=== PATIENT | female | born 1955 | race Caucasian/White ===

== ENCOUNTER 2016-12-20 08:58 | Emergency (ER) | payer OTHER ==
[~2016-12-20] VITALS: Ht 165.1 cm; Wt 59.0 kg
[~2016-12-20 08:58] MED LIST: MULT-116 PO; [UNRECOGNIZED DRUG - CODE] IV
[2016-12-20 09:27] LABS: BASOPHILS # (AUTO) 0.1 10^3/uL (0.0-0.1); BASOPHILS % (AUTO) 1 % (0-10); EOSINOPHILS % (AUTO) 1 % (0-10); LYMPHOCYTES # (AUTO) 2.4 X 10^3 (1.0-4.0); LYMPHOCYTES % (AUTO) 48 % (12-44); MEAN CORPUSCULAR HEMOGLOBIN 30 PG (25-34); MEAN CORPUSCULAR HGB CONC 34 G/DL (32-36); MEAN CORPUSCULAR VOLUME 90 FL (80-99); MEAN PLATELET VOLUME 10.3 FL (7.4-10.4); MONOCYTES # (AUTO) 0.4 X 10^3 (0.0-1.0); MONOCYTES % (AUTO) 8 % (0-12); NEUTROPHILS # (AUTO) 2.1 X 10^3 (1.8-7.8); NEUTROPHILS % (AUTO) 43 % (42-75); PLATELET COUNT 181 10^3/uL (130-400); RED BLOOD COUNT 4.48 10^6/uL (4.35-5.85); RED CELL DISTRIBUTION WIDTH 13.4 % (10.0-14.5)
[2016-12-20 09:31] LABS: BILIRUBIN,URINE NEGATIVE (NEGATIVE); KETONES,URINE NEGATIVE (NEGATIVE); LEUKOCYTE ESTERASE ,URINE NEGATIVE (NEGATIVE); NITRITE,URINE NEGATIVE (NEGATIVE); PH,URINE 8 (5-9); PROTEIN,URINE NEGATIVE (NEGATIVE); UROBILINOGEN,URINE NORMAL (NORMAL)
[2016-12-20 09:32] LABS: INR 0.9 (0.8-1.4); PROTHROMBIN TIME PATIENT 11.9 SEC (12.2-14.7)
[2016-12-20 09:38] LABS: SQUAMOUS EPITHELIAL CELL,UR RARE /HPF
[2016-12-20 09:41] LABS: ALANINE AMINOTRANSFERASE 16 U/L (0-55); ALBUMIN 4.3 G/DL (3.2-4.5); ANION GAP 11 MMOL/L (5-14); ASPARTATE AMINO TRANSFERASE 27 U/L (5-34); BILIRUBIN,TOTAL 0.3 MG/DL (0.1-1.0); BLOOD UREA NITROGEN 10 MG/DL (7-18); BUN/CREATININE RATIO 13; CALCIUM 9.5 MG/DL (8.5-10.1); CARBON DIOXIDE 25 MMOL/L (21-32); CHLORIDE 105 MMOL/L (98-107); CREATININE SERUM 0.75 MG/DL (0.60-1.30); GFR ESTIMATED > 60; GLUCOSE 98 MG/DL (70-105); POTASSIUM 3.8 MMOL/L (3.6-5.0); SODIUM 141 MMOL/L (135-145); TOTAL PROTEIN 7.1 G/DL (6.4-8.2)
--- NOTE | 2016-12-20 09:42 | ED Cardiac General ---
History of Present Illness General Chief Complaint: Chest Pain Stated Complaint: CHEST PAIN Nursing Triage Note: PT STATES WEAKNESS, CHEST PAIN, COUGHING, AND DIZZINESS. DX LAST WEEK WITH THE FLU. Source: patient Exam Limitations: no limitations History of Present Illness Time seen by provider: 09:00 Initial Comments Here with report of chest congestion, cough, weakness, dizziness, chest tightness/pain and overall not feeling well. This is progressive for the last 5 -6 days. She is currently on Tamiflu for the cough and congestion. She states that her cough is causing her chest to hurt. She presents weak and clammy. 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 Has had some vomiting and some loose stools although that seems to be better over the last day or 2. Timing/Duration: 5-6 days Severity: moderate Location: central Prior CP/Workup: no prior chest pain NTG SL SHAPING MACHINE TENDER: No ASA po SHAPING MACHINE TENDER: No Associated Systoms: Chest Pain, Cough, Fever/Chills, Malaise, Nausea/Vomiting, No Rash, Shortness of Air, Weakness Allergies and Home Medications Allergies Coded Allergies: hydrocodone (Verified Allergy, Unknown, 03/27/16) Home Medications Multivitamin 1 Each Tablet, 1 EACH PO DAILY, (Reported) Review of Systems Constitutional: see HPI, chills, diaphoresis, fever EENTM: Nose Congestion, Throat Pain Respiratory: See HPI, Cough, Shortness of Air Cardiovascular: See HPI, Chest Pain, Lightheadedness Gastrointestinal: Diarrhea, Nausea, Vomiting Genitourinary: No Symptoms Reported Musculoskeletal: no symptoms reported Skin: no symptoms reported Psychiatric/Neurological: Anxiety, Denies Headache Endocrine: No Symptoms Reported All Other Systems Reviewed Negative Unless Noted: Yes Past Dnouqyg-Fbywto-Vurvtf Hx Patient Social History Alcohol Use: Denies Use Recreational Drug Use: No Smoking Status: Current Everyday Smoker Type Used: Cigarettes Recent Foreign Travel: No Contact w/Someone Who Travel: No Recent Infectious Disease Expo: No Recent Hopitalizations: No Immunizations Up To Date Tetanus Booster (TDap): Unknown Date of Influenza Vaccine: Jun 07, 2016 Seasonal Allergies Seasonal Allergies: No Surgeries HX Surgeries: Yes (right arm/hand, lipoma, breast bx) Surgeries: Hysterectomy, Orthopedic Respiratory Hx Respiratory Disorders: Yes Respiratory Disorders: Pneumonia Cardiovascular Hx Cardiac Disorders: No Neurological Hx Neurological Disorders: No Reproductive System Hx Reproductive Disorders: Yes ENDOCRINOLOGY NURSE History: Hysterectomy Genitourinary Hx Genitourinary Disorders: No Gastrointestinal Hx Gastrointestinal Disorders: No Musculoskeletal Hx Musculoskeletal Disorders: No Endocrine Hx Endocrine Disorders: No HEENT HX ENT Disorders: No Cancer Hx Cancer: No Psychosocial Hx Psychiatric Problems: Yes Behavioral Health Disorders: Depression Integumentary HX Skin/Integumentary Disorder: No Blood Transfusions Hx Blood Disorders: No Adverse Reaction to a Blood Tr: No Reviewed Nursing Assessment Reviewed/Agree w Nursing PMH: Yes Family Medical History Significant Family History: No Pertinent Family Hx Physical Exam Vital Signs Vital Sign - Last 12Hours 12/20/16 09:14 Temp 97.6 Pulse 64 Resp 22 B/P (MAP) 160/92 Pulse Ox 100 O2 Delivery Room Air Capillary Refill : Less Than 3 Seconds General Appearance: No Apparent Distress, WD/WN HEENT: PERRL/EOMI, Pharyngeal Erythema Neck: Non Tender, Supple Respiratory: No Respiratory Distress, Crackles (right base), No Wheezing Cardiovascular: Regular Rate, Rhythm, No Murmur Gastrointestinal: Non Tender, Soft Extremity: Normal Range of Motion, Non Tender Neurologic/Psychiatric: Alert, Oriented x3 Skin: Normal Color, Warm/Dry Focused Exam Lactic Acid Level Laboratory Tests Test 12/20/16 09:10 Lactic Acid Level 1.25 MMOL/L (0.50-2.00) Progress/Results/Core Measures Results/Orders Lab Results Laboratory Tests Test 12/20/16 09:10 12/20/16 09:20 Range/Units White Blood Count 5.0 4.3-11.0 10^3/uL Red Blood Count 4.48 4.35-5.85 10^6/uL Hemoglobin 13.6 11.5-16.0 G/DL Hematocrit 40 35-52 % Mean Corpuscular Volume 90 80-99 FL Mean Corpuscular Hemoglobin 30 25-34 PG Mean Corpuscular Hemoglobin Concent 34 32-36 G/DL Red Cell Distribution Width 13.4 10.0-14.5 % Platelet Count 181 130-400 10^3/uL Mean Platelet Volume 10.3 7.4-10.4 FL Neutrophils (%) (Auto) 43 42-75 % Lymphocytes (%) (Auto) 48 H 12-44 % Monocytes (%) (Auto) 8 0-12 % Eosinophils (%) (Auto) 1 0-10 % Basophils (%) (Auto) 1 0-10 % Neutrophils # (Auto) 2.1 1.8-7.8 X 10^3 Lymphocytes # (Auto) 2.4 1.0-4.0 X 10^3 Monocytes # (Auto) 0.4 0.0-1.0 X 10^3 Eosinophils # (Auto) 0.0 0.0-0.3 10^3/uL Basophils # (Auto) 0.1 0.0-0.1 10^3/uL Prothrombin Time 11.9 L 12.2-14.7 SEC INR Comment 0.9 0.8-1.4 Activated Partial Thromboplast Time 27 24-35 SEC Sodium Level 141 135-145 MMOL/L Potassium Level 3.8 3.6-5.0 MMOL/L Chloride Level 105 98-107 MMOL/L Carbon Dioxide Level 25 21-32 MMOL/L Anion Gap 11 5-14 MMOL/L Blood Urea Nitrogen 10 7-18 MG/DL Creatinine 0.75 0.60-1.30 MG/DL Estimat Glomerular Filtration Rate > 60 BUN/Creatinine Ratio 13 Glucose Level 98 70-105 MG/DL Lactic Acid Level 1.25 0.50-2.00 MMOL/L Calcium Level 9.5 8.5-10.1 MG/DL Total Bilirubin 0.3 0.1-1.0 MG/DL Aspartate Amino Transf (AST/SGOT) 27 5-34 U/L Alanine Aminotransferase (ALT/SGPT) 16 0-55 U/L Alkaline Phosphatase 51 40-136 U/L Troponin I < 0.30 <0.30 NG/ML Total Protein 7.1 6.4-8.2 G/DL Albumin 4.3 3.2-4.5 G/DL Urine Color YELLOW Urine Clarity CLEAR Urine pH 8 5-9 Urine Specific [place] 1.010 L 1.016-1.022 Urine Protein NEGATIVE NEGATIVE Urine Glucose (UA) NEGATIVE NEGATIVE Urine Ketones NEGATIVE NEGATIVE Urine Nitrite NEGATIVE NEGATIVE Urine Bilirubin NEGATIVE NEGATIVE Urine Urobilinogen NORMAL NORMAL MG/DL Urine Leukocyte Esterase NEGATIVE NEGATIVE Urine RBC (Auto) NEGATIVE NEGATIVE Urine RBC RARE /HPF Urine WBC NONE /HPF Urine Squamous Epithelial Cells RARE /HPF Urine Crystals NONE /LPF Urine Bacteria NEGATIVE /HPF Urine Casts NONE /LPF Urine Mucus NEGATIVE /LPF Urine Culture Indicated NO My Orders Orders - CHARBEL CLEANING MD Cbc With Automated Diff (4/19/17 09:05) Comprehensive Metabolic Panel (12/20/16 09:05) Lactic Acid Analyzer (12/20/16 09:05) Blood Culture (12/20/16 09:05) Sputum Culture (12/20/16 09:05) Ua Culture If Indicated (12/20/16 09:05) Protime With Inr (12/20/16 09:05) Partial Thromboplastin Time (12/20/16 09:05) Chest 1 View, Ap/Pa Only (12/20/16 09:05) O2 (12/20/16 09:05) Saline Lock/Iv-Start (12/20/16 09:05) Saline Lock/Iv-Start (12/20/16 09:05) Ekg Tracing (12/20/16 09:05) Troponin I (12/20/16 09:05) Vital Signs Adult Sepsis Patie Q1HR (12/20/16 09:05) Remove Rings In Anticipation O (12/20/16 09:05) Ns Iv 1000 Ml (Sodium Chloride 0.9%) (12/20/16 09:47) Albuterol/Ipra Inhalation Soln (Duoneb I (12/20/16 10:00) Svn Sm Volume Nebulizer Rt-Rfs (12/20/16 09:48) Medications Given in ED Current Medications Medications Dose Ordered Sig/Dean Route Start Time Stop Time Status Last Admin Dose Admin Albuterol/ Ipratropium 3 ml ONCE ONCE INH 12/20/16 10:00 12/20/16 10:01 DC 12/20/16 10:01 3 ML Sodium Chloride 1,000 ml @ 0 mls/hr Q0M ONCE IV 12/20/16 09:47 12/20/16 09:48 DC 12/20/16 09:54 1,000 MLS/HR Vital Signs/I&O Vital Sign - Last 12Hours 12/20/16 12/20/16 12/20/16 09:14 09:26 10:03 Temp 97.6 Pulse 64 Resp 22 B/P (MAP) 160/92 Pulse Ox 100 99 O2 Delivery Room Air Room Air Blood Pressure Mean: 114 Progress Note : Progress Note Seen and evaluated. IV, labs, EKG and chest x-ray ordered. Blood cultures and lactic acid ordered due to recent illness. Normal saline 1 L bolus. Monitor patient. 1225: Overall no acute findings. Patient feeling a little better after fluids. Likely bronchitis related event as well as viral GI illness. Discharged home with return precautions. Patient verbalize understanding instructions and agreement with plan. ECG Initial ECG Impression Date: Dec 20, 2016 Initial ECG Impression Time: 09:03 Initial ECG Rate: 65 Initial ECG Rhythm: Normal Sinus Comment Sinus rhythm with flat T waves. No evidence of ST elevation [place]. Overall similar to previous of 06 September 2004. Interpreted by me. Diagnostic Imaging Diagonstic Imaging: Xray Plain Films/CT/US/NM/MRI: chest Comments VIA [facility]. [place], [place] NAME: RACHID HALLMAN [facility] REC#: [id number] PT STATUS: REG ER : 1955 PHYSICIAN: CHARBEL CLEANING MD ADMIT DATE: 12/20/16/ER Draft Date of Exam:12/20/16 CHEST 1 VIEW, AP/PA ONLY EXAMINATION: Frontal chest obtained at 935 hours a.m. Heart and mediastinal silhouette are normal in appearance. The lungs are clear. There is no pneumothorax or pleural fluid. IMPRESSION: Negative chest. Dictated on workstation # [id number] Dict: 12/20/16 0942 Trans: 12/20/16 0945 [facility] [id number] Interpreted by: ADE PURDY MD Electronically signed by: Reviewed: Reviewed by Me Departure Impression Impression: Primary Impression: Bronchitis Additional Impressions: Diarrhea Qualified Codes: R19.7 - Diarrhea, unspecified Dehydration Disposition: 01 HOME, SELF-CARE Condition: Improved Departure-Patient Inst. Referrals: [facility] (PCP/Family) Primary Care Physician Patient Instructions: Acute Bronchitis, Adult (DC), Chest Pain (DC), Dehydration, Adult (DC), Diarrhea in Adolescents and Adults Add. Discharge Instructions: All discharge instructions reviewed with patient and/or family. Voiced understanding. Drink plenty of fluids. Clear liquid diet for 24 hours and then advance as tolerated. Follow-up with your Dr. in a few days for recheck. Return for worse pain, fever, vomiting, weakness, breathing problems or other concerns as needed. Take medications as directed. Scripts Albuterol Sulfate (PROAIR HFA) 1 Puff Puff 2 PUFF IH Q4H Y for WHEEZING, #1 INHALER 1 Refill 1 PUFF = 90 MCG Prov: CHARBEL CLEANING MD 12/20/16 Prednisone (Prednisone) 20 Mg Tab 40 MG PO DAILY, #12 TAB 0 Refills Prov: CHARBEL CLEANING MD 12/20/16 CHARBEL CLEANING MD Dec 20, 2016 09:42
[2016-12-20 09:46] LABS: TROPONIN I < 0.30 NG/ML (<0.30)
--- NOTE | 2016-12-20 09:46 | Diagnostic Imaging Report ---
EXAMINATION: Frontal chest obtained at 935 hours a.m. Heart and mediastinal silhouette are normal in appearance. The lungs are clear. There is no pneumothorax or pleural fluid. IMPRESSION: Negative chest. Dictated by: Dictated on workstation # [id number]
[2016-12-20] MEDS ORDERED: NS IV 1000 ML 1,000 ML IV ONE (09:47)
[2016-12-20] MEDS ORDERED: RT-ALBUTEROL/IPRATROPIUM 3 ML (DUONEB) VIAL INH ONE (10:00)
[2016-12-20] MEDS ORDERED: PRD20T PO (12:42)
[2016-12-20] MEDS ORDERED: RT-ALBUINH IH (12:42)
[2016-12-20 13:15] VITALS: BP 143/90
== END 2016-12-20 13:15 | disposition home or self-care (01) ==
LOC: EDUNIT# 08:58 → ER 08:59
DX: J40 Bronchitis, not specified as acute or chronic (principal); E86.0 Dehydration; R42 Dizziness and giddiness; F17.210 Nicotine dependence, cigarettes, uncomplicated
CPT/HCPCS: 36415; 71010; 80053; 81000; 83605; 84484; 85025; 85610; 85730; 87040; 87070; 87205; 93005; 94640; 96360

== ENCOUNTER → 2018-01-03 | Outpatient (CLI) | payer OTHER ==
[~2018-01-03] MED LIST changes: -MULT-116 PO; +MULT-324 PO; +MULT10VI3 IV; +PRD20T PO; +RT-ALBUINH IH; -[UNRECOGNIZED DRUG - CODE] IV
--- NOTE | 2018-01-03 19:24 | Diagnostic Imaging Report ---
INDICATION: Routine screening. No prior mammograms are available for comparison. This is a baseline study. 2-D and 3-D bilateral screening mammography was performed with CAD. The current study was also evaluated with a Computer Aided Detection (CAD) system. FINDINGS: Both breasts are heterogeneously dense, limiting the sensitivity of mammography. Scattered benign-appearing calcifications are noted. Tiny circumscribed density in the inner left breast is noted, likely a small cyst. This appears benign. No spiculated mass or malignant-appearing microcalcifications are seen. The axillae are unremarkable. IMPRESSION: No mammographic features suspicious for malignancy are identified. ACR BI-RADS Category 2: Benign findings. Result letter will be mailed to the patient. Note: At least 10% of breast cancer is not imaged by mammography. Dictated by: Dictated on workstation # [id number]
== END ==
LOC: RAD 13:37
PROVIDERS: ATTEND Family Medicine
DX: Z12.31 Encounter for screening mammogram for malignant neoplasm of breast (principal)
CPT/HCPCS: 77067

== ENCOUNTER → 2019-02-12 | Outpatient (CLI) | payer OTHER ==
[~2019-02-12] MED LIST changes: +ALPR0.254 PO; +ASCO1CAP4 PO; +CHOL200025 PO; +KRIL1CAP18 PO; +MAGN400T39 PO; -MULT-324 PO; +MULT-834 PO
--- NOTE | 2019-02-12 18:55 | Diagnostic Imaging Report ---
EXAMINATION: Digital mammogram bilateral screening. The current study was also evaluated with a Computer Aided Detection (CAD) system. 3-D tomosynthesis was also performed and reviewed. INDICATION: Screening. This study was compared to the prior exam of 01/03/2018. At this time, there are no current complaints. FINDINGS: The fibroglandular tissue in both breasts is dense. This does limit the sensitivity of this exam. Overall, there does not appear to have been any significant change when compared to the prior study. No primary or secondary sign of malignancy is noted. The 3D tomographic views also fail to show any evidence of malignancy. IMPRESSION: There is no radiographic evidence for malignancy. ACR BI-RADS Category 1: Negative. Result letter will be mailed to the patient. Note: At least 10% of breast cancer is not imaged by mammography. Dictated by: Dictated on workstation # [id number]
== END ==
LOC: RAD 09:33
PROVIDERS: ATTEND Family Medicine
DX: Z12.31 Encounter for screening mammogram for malignant neoplasm of breast (principal)
CPT/HCPCS: 77067

== ENCOUNTER 2019-02-13 12:00 | Outpatient (CLI) | payer OTHER ==
[~2019-02-13] VITALS: Ht 165.1 cm; Wt 59.0 kg
[~2019-02-13 12:00] MED LIST changes: -ALPR0.254 PO; -ASCO1CAP4 PO; -CHOL200025 PO; -KRIL1CAP18 PO; -MAGN400T39 PO
[2019-02-13] MEDS ORDERED: KRIL1CAP18 PO (12:22)
[2019-02-13] MEDS ORDERED: ALPR0.254 PO (12:22)
[2019-02-13] MEDS ORDERED: MAGN400T39 PO (12:22)
[2019-02-13] MEDS ORDERED: ASCO1CAP4 PO (12:22)
[2019-02-13] MEDS ORDERED: CHOL200025 PO (12:22)
== END 2019-02-13 12:58 ==
LOC: PREOP 12:00
PROVIDERS: ATTEND Surgery
DX: Z01.818 Encounter for other preprocedural examination (principal)

== ENCOUNTER 2019-02-18 09:54 | Day surgery (SDC) | payer OTHER ==
[~2019-02-18] VITALS: Ht 165.1 cm; Wt 59.0 kg
[~2019-02-18 09:54] MED LIST changes: +ALPR0.254 PO; +ASCO1CAP4 PO; +CHOL200025 PO; +KRIL1CAP18 PO; +MAGN400T39 PO
[2019-02-18] MEDS ORDERED: LACTATED RINGERS 1,000 ML IV ONE (09:58)
[2019-02-18 10:15] VITALS: BP 120/85
[2019-02-18] MEDS ORDERED: MIDAZOLAM 2 MG/2 ML (VERSED) VIAL ONE (12:27)
[2019-02-18] MEDS ORDERED: PROPOFOL INJECTION 50 ML IV ONE (12:27)
--- NOTE | 2019-02-18 12:31 | Progress Note-Pre Operative ---
Pre-Operative Progress Note H&P Reviewed The H&P was reviewed, patient examined and no changes noted. Date Seen by Provider: Feb 18, 2019 Time Seen by Provider: 12:31 Date H&P Reviewed: Feb 18, 2019 Time H&P Reviewed: 12:31 Pre-Operative Diagnosis: BLOOD IN STOOL, CHRONIC DIARRHEA, HX DIVERTICULITIS CHARLEY HILL DO Feb 18, 2019 12:31
--- NOTE | 2019-02-18 13:09 | Progress Note-Post Operative ---
Post-Operative Progess Note Surgeon (s)/[employer] Intermediary (s) Surgeon CHARLEY HILL DO [employer] Intermediary: NA Pre-Operative Diagnosis BLOOD IN STOOL, CHRONIC DIARRHEA, HX DIVERTICULITIS Post-Operative Diagnosis RECTAL POLYP Procedure & Operative Findings Date of Procedure 02/18/19 Procedure Performed/Findings COLONOSCOPY C RANDOM COLD BIOPSIES, COLD POLYPECTOMY Anesthesia Type PER SHEAR OPERATOR HELPER Estimated Blood Loss Estimated blood loss (mL): NONE Specimens/Packing Specimens Removed RANDOM COLON, RECTAL POLYP CHARLEY HILL DO Feb 18, 2019 13:09
[2019-02-18 13:10] VITALS: BP 114/63
--- NOTE | 2019-02-18 13:11 | Discharge Inst-Simple/Standard ---
Discharge Inst-Standard Patient Instructions/Follow Up Plan of Care/Instructions/FU: 2 WEEKS SERGIO Activity as Tolerated: Yes Discharge Diet: Regular Diet (HIGH FIBER) CHARLEY HILL DO Feb 18, 2019 13:11
[2019-02-18 13:40] VITALS: BP 123/66
--- NOTE | 2019-02-18 13:55 | Anesthesia-General Post-Op ---
MAC Patient Condition Mental Status/LOC: Same as Preop Cardiovascular: Satisfactory Nausea/Vomiting: Absent Respiratory: Satisfactory Pain: Controlled Complications: Absent Post Op Complications Complications None Follow Up Care/Instructions Patient Instructions None needed. Anesthesiology Discharge Order Discharge Order Patient is doing well, no complaints, stable vital signs, no apparent adverse anesthesia problems. No complications reported per nursing. ANIYAH MURRELL CRNA Feb 18, 2019 13:55
[2019-02-18 14:10] VITALS: BP 123/66
--- NOTE | 2019-02-18 17:35 | OPERATIVE REPORT ---
DATE OF SERVICE: 02/18/2019 PREOPERATIVE DIAGNOSES: Blood in stool, chronic diarrhea, history of diverticulitis. POSTOPERATIVE DIAGNOSES: Rectal polyp. PROCEDURE PERFORMED: Colonoscopy with random cold biopsies and cold polypectomy of rectal polyp. SURGEON: Charley Pichardo DO. ANESTHESIA: Per GRADE SETTER. ESTIMATED BLOOD LOSS: None. COMPLICATIONS: None. INDICATIONS: The patient is a 63-year-old female with recent blood in stools and chronic diarrhea. The patient states she has been treated for diverticulitis in the past. She understands risks and benefits of procedure and wished to proceed with procedure. Consent was signed in the chart. DESCRIPTION OF PROCEDURE: The patient was taken to the endoscopy suite, placed in left lateral recumbent position. Timeout was performed. Digital rectal exam was performed. There were no palpable polyps, mass or ulcerations. The scope was inserted in the rectum and advanced all the way to the cecum with minimal difficulty. Prep was adequate. Scope was then slowly retracted back. There were no polyps, mass or ulceration in the cecum, ascending, transverse, descending and sigmoid colon. Random cold biopsies were obtained as the scope was being withdrawn. In the rectum, a small polyp was present, which cold polypectomy was performed. Scope was retroflexed noting no other pathology. Scope was returned to its normal position, slowly withdrawn until completely removed. The patient tolerated procedure well without any complications. She was taken to recovery room in stable condition. RECOMMENDATIONS: The patient will follow up with us in 2 weeks to discuss pathology results. The patient is to increase fiber in her diet. The patient will need repeat colonoscopy in 5 years. If any issues before that be seen at that time. Job ID: [id number] DocumentID: [id number] Dictated Date: 02/18/2019 13:13:15 Gear Lapper Date: 02/18/2019 17:34:56 Dictated By: CHARLEY PICHARDO DO
== END 2019-02-18 14:10 | disposition home or self-care (01) ==
LOC: ENDO 09:54
PROVIDERS: ATTEND Surgery
DX: K52.9 Noninfective gastroenteritis and colitis, unspecified (principal); K62.1 Rectal polyp; Z87.19 Personal history of other diseases of the digestive system; F17.210 Nicotine dependence, cigarettes, uncomplicated; Z79.899 Other long term (current) drug therapy

== ENCOUNTER 2019-09-25 06:41 | Outpatient (RCR) | payer OTHER | END 2019-12-22 | disposition home or self-care (01) | LOC: LAB 06:41 | PROVIDERS: ATTEND Family Medicine | DX: R19.7 Diarrhea, unspecified (principal) | CPT/HCPCS: 87015; 87045; 87046; 87324; 87328; 87329; 87449; 87899 ==

== ENCOUNTER 2021-02-03 00:07 | Emergency (ER) | payer OTHER ==
[~2021-02-03] VITALS: Ht 165.1 cm; Wt 63.5 kg
[~2021-02-03 00:07] MED LIST changes: +ALPR.25T PO; -ALPR0.254 PO
[2021-02-03] MEDS ORDERED: ASPIRIN 81 MG CHEW (CHILDREN'S ASA) PO ONE (00:15)
[2021-02-03 00:32] LABS: BASOPHILS % (AUTO) 0 % (0-10); EOSINOPHILS # (AUTO) 0.1 10^3/uL (0.0-0.3); EOSINOPHILS % (AUTO) 0 % (0-10); HEMATOCRIT 43 % (35-52); HEMOGLOBIN 14.7 g/dL (11.5-16.0); LYMPHOCYTES # (AUTO) 3.8 10^3/uL (1.0-4.0); LYMPHOCYTES % (AUTO) 22 % (12-44); MEAN CORPUSCULAR HEMOGLOBIN 31 pg (25-34); MEAN CORPUSCULAR HGB CONC 34 g/dL (32-36); MEAN CORPUSCULAR VOLUME 90 fL (80-99); MEAN PLATELET VOLUME 10.1 fL (9.0-12.2); MONOCYTES # (AUTO) 0.5 10^3/uL (0.0-1.0); MONOCYTES % (AUTO) 3 % (0-12); NEUTROPHILS # (AUTO) 13.1 10^3/uL (1.8-7.8); NEUTROPHILS % (AUTO) 75 % (42-75); PLATELET COUNT 258 10^3/uL (130-400); WHITE BLOOD COUNT 17.5 10^3/uL (4.3-11.0)
--- NOTE | 2021-02-03 00:36 | ED General ---
General Chief Complaint: Abdominal/GI Problems Stated Complaint: CP,DIARRHEA,VOMITING,HIVES Source of Information: Patient History of Present Illness Date Seen by Provider: Feb 03, 2021 Time Seen by Provider: 00:15 Initial Comments PT ARRIVES VIA POV FROM HOME, WANTS WHEELCHAIR ON ARRIVAL PT WITH MULTITUDE OF COMPLAINTS STATES SHE HAD HIVES YESTERDAY--ALL OVER. WENT TO [facility] AND GOT A SHOT OF CORTISONE AND TOOK A ZYRTEC YESTERDAY MORNING, AND HIVES WENT AWAY. STATES SHE DID HAVE THEM COME UP ON HER BUTTOCK AROUND 1700 BUT THEN WENT AWAY WITHOUT TREATMENT STATES " I FEEL LIKE I'M FILLING UP WITH ACID AND I'M POOPING BLACK TONIGHT" STATES SHE HAS HAD STOOLS X 3 TONIGHT THAT HAVE BEEN "BLACK" AND IS CAUSING RECTAL PAIN AND BURNING BECAUSE OF THE "DIARRHEA" STATES THEN SHE STARTED VOMITING TONIGHT, HAS VOMITED X 2 STATES YESTERDAY MORNING SHE HAD "CHEST PAIN THAT WENT TO MY BACK" --STATES "IT'S ALL UNDER MY DIAPHRAGM" AND POINTS TO EPIGASTRIC AREA AND ALL AROUND LOWER RIBS STATES SHE IS NOT HAVING PAIN NOW THEN STATES SHE HAS BEEN HAVING GENERALIZED ABDOMINAL PAIN, ALONG WITH RECTAL PAIN AND "HEMORRHOIDS" NO FEVER NO URINARY SYMPTOMS NO SHORTNESS OF BREATH PT DENIES ANY HISTORY OF CARDIAC PROBLEMS PT DID HAVE COLONOSCOPY 02/2019 FOR COMPLAINT OF CHRONIC DIARRHEA AND CHRONIC CONSTIPATION, AND WAS FOUND TO HAVE POLYPS AT THAT TIME ALSO HAS HISTORY OF DIVERTICULITIS PT IS NOT ON ASPIRIN OR BLOOD THINNERS PCP: DR. GOLD Allergies and Home Medications Allergies Coded Allergies: hydrocodone (Verified Allergy, Unknown, 03/27/16) Home Medications ALPRAZolam 0.25 Mg Tablet, 0.25 MG PO PRN, (Reported) Ascorbic Acid/Collagen Hydr 1 Each Capsule, 1 EACH PO DAILY, (Reported) Cholecalciferol (Vitamin D3) 2,000 Unit Tablet, 2,000 UNIT PO DAILY, (Reported) Ciprofloxacin HCl 500 Mg Tablet, 500 MG PO BID Prescribed by: ANDRÉS MCDANIEL on 02/03/21 0250 Famotidine 40 Mg Tablet, 40 MG PO DAILY Prescribed by: ANDRÉS MCDANIEL on 02/03/21 0250 Krill/Om-3/Dha/Epa/Phospho/Ast 1 Each Capsule, 1 EACH PO DAILY, (Reported) L. Acidophilus/Pectin, [place] 1 Each Capsule, 2 EACH PO QID Prescribed by: ANDRÉS MCDANIEL on 02/03/21249 Magnesium Oxide 400 Mg Tablet, 400 MG PO DAILY, (Reported) Metronidazole 500 Mg Tablet, 500 MG PO QID Prescribed by: ANDRÉS MCDANIEL on 02/03/21249 Ondansetron 8 Mg Tab.rapdis, 8 MG PO Q6H Prescribed by: ANDRÉS MCDANIEL on 02/03/21249 Prednisone 20 Mg Tab, 40 MG PO DAILY Prescribed by: ANDRÉS MCDANIEL on 02/03/21249 Patient Home Medication List Home Medication List Reviewed: Yes Review of Systems Review of Systems Constitutional: no symptoms reported; No chills, No diaphoresis, No fever EENTM: no symptoms reported Respiratory: no symptoms reported; No short of breath Cardiovascular: see HPI, chest pain; No edema Gastrointestinal: see HPI, abdominal pain, diarrhea, melena, nausea, vomiting Genitourinary: no symptoms reported Musculoskeletal: no symptoms reported Skin: see HPI, rash Psychiatric/Neurological: Anxiety Hematologic/Lymphatic: No Symptoms Reported Immunological/Allergic: no symptoms reported Past Tfocenu-Qfxobr-Lvnyxg Hx Past Med/Social Hx: Reviewed and Corrections made Patient Social History Alcohol Use: Rarely Uses Drug of Choice: DENIES Smoking Status: Current Everyday Smoker (1 PPD) Type Used: Cigarettes 2nd Hand Smoke Exposure: Yes Recent Hopitalizations: No Immunizations Up To Date Tetanus Booster (TDap): Unknown PED Vaccines UTD: No Date of Influenza Vaccine: Jun 10, 2018 Seasonal Allergies Seasonal Allergies: Yes Past Medical History Surgeries: Yes (right arm/hand, lipoma, breast bx;HYST/BSO-2 SURGERIES;COLONOSCOPIES) Breast, Hysterectomy, Oophorectomy, Orthopedic Respiratory: Yes Pneumonia Currently Using CPAP: No Currently Using BIPAP: No Cardiac: No Neurological: No Reproductive Disorders: Yes [employer]ORE [employer] History: Hysterectomy, Menopausal Sexually Transmitted Disease: No HIV/AIDS: No Genitourinary: No Gastrointestinal: Yes Chronic Constipation, Diverticulosis, Chronic Diarrhea, Polyps Musculoskeletal: Yes Arthritis Endocrine: No HEENT: Yes (GLASSES, DENTURES) Loss of Vision: Denies Hearing Impairment: Denies Cancer: No Psychosocial: Yes Anxiety, Depression Integumentary: No Blood Disorders: No (HX LOW IRON) Adverse Reaction/Blood Tranf: No (N/A) Family Medical History No Pertinent Family Hx Physical Exam Vital Signs Vital Signs - First Documented 02/03/21 02/03/21 00:15 03:27 Temp 36.7 Pulse 82 Resp 20 B/P (MAP) 117/95 (102) Pulse Ox 98 O2 Delivery Room Air Capillary Refill : Height, Weight, BMI Height: 5'5.00" Weight: 130lbs. 0.0oz. [id number]; 21.6 BMI Method:Stated General Appearance: WD/WN, Anxious, Other (VERY DRAMATIC, MOANING, HYPERVENTILATING, KEEPS EYES TIGHTLY CLOSED. 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 Skin: Normal Color, Warm/Dry; No Rash (NO RASH NOTED ANYWHERE AT THIS TIME.) Progress/Results/Core Measures Suspected Sepsis SIRS Temperature: Pulse: Respiratory Rate: Laboratory Tests 02/03/21 00:25: White Blood Count 17.5H Blood Pressure / Mean: Laboratory Tests 02/03/21 00:25: Creatinine 0.86, Platelet Count 258, Total Bilirubin 0.4 Results/Orders Lab Results Laboratory Tests Test 02/03/21 00:25 02/03/21 00:48 Range/Units White Blood Count 17.5 H 4.3-11.0 10^3/uL Red Blood Count 4.77 3.80-5.11 10^6/uL Hemoglobin 14.7 11.5-16.0 g/dL Hematocrit 43 35-52 % Mean Corpuscular Volume 90 80-99 fL Mean Corpuscular Hemoglobin 31 25-34 pg Mean Corpuscular Hemoglobin Concent 34 32-36 g/dL Red Cell Distribution Width 12.9 10.0-14.5 % Platelet Count 258 130-400 10^3/uL Mean Platelet Volume 10.1 9.0-12.2 fL Immature Granulocyte % (Auto) 0 % Neutrophils (%) (Auto) 75 42-75 % Lymphocytes (%) (Auto) 22 12-44 % Monocytes (%) (Auto) 3 0-12 % Eosinophils (%) (Auto) 0 0-10 % Basophils (%) (Auto) 0 0-10 % Neutrophils # (Auto) 13.1 H 1.8-7.8 10^3/uL Lymphocytes # (Auto) 3.8 1.0-4.0 10^3/uL Monocytes # (Auto) 0.5 0.0-1.0 10^3/uL Eosinophils # (Auto) 0.1 0.0-0.3 10^3/uL Basophils # (Auto) 0.0 0.0-0.1 10^3/uL Immature Granulocyte # (Auto) 0.1 0.0-0.1 10^3/uL Neutrophils % (Manual) 74 % Lymphocytes % (Manual) 21 % Monocytes % (Manual) 2 % Band Neutrophils 3 % Sodium Level 139 135-145 MMOL/L Potassium Level 3.7 3.6-5.0 MMOL/L Chloride Level 101 98-107 MMOL/L Carbon Dioxide Level 22 21-32 MMOL/L Anion Gap 16 H 5-14 MMOL/L Blood Urea Nitrogen 24 H 7-18 MG/DL Creatinine 0.86 0.60-1.30 MG/DL Estimat Glomerular Filtration Rate > 60 BUN/Creatinine Ratio 28 Glucose Level 145 H 70-105 MG/DL Calcium Level 9.8 8.5-10.1 MG/DL Corrected Calcium 9.5 8.5-10.1 MG/DL Magnesium Level 1.7 1.6-2.4 MG/DL Total Bilirubin 0.4 0.1-1.0 MG/DL Aspartate Amino Transf (AST/SGOT) 23 5-34 U/L Alanine Aminotransferase (ALT/SGPT) 19 0-55 U/L Alkaline Phosphatase 49 40-136 U/L Total Creatine Kinase 74 29-168 U/L Creatine Kinase MB 1.4 <6.6 NG/ML Myoglobin 40.7 10.0-92.0 NG/ML Troponin I < 0.028 <0.028 NG/ML B-Type Natriuretic Peptide < 10.0 <100.0 PG/ML Total Protein 7.3 6.4-8.2 GM/DL Albumin 4.4 3.2-4.5 GM/DL Amylase Level 227 H 25-125 U/L Lipase 203 H 8-78 U/L Urine Color YELLOW Urine Clarity CLEAR Urine pH 5.5 5-9 Urine Specific [place] >=1.030 1.016-1.022 Urine Protein NEGATIVE NEGATIVE Urine Glucose (UA) NEGATIVE NEGATIVE Urine Ketones TRACE H NEGATIVE Urine Nitrite NEGATIVE NEGATIVE Urine Bilirubin NEGATIVE NEGATIVE Urine Urobilinogen 0.2 < = 1.0 MG/DL Urine Leukocyte Esterase NEGATIVE NEGATIVE Urine RBC (Auto) NEGATIVE NEGATIVE Urine RBC /HPF Urine WBC /HPF Urine Crystals /LPF Urine Bacteria /HPF Urine Casts /LPF Urine Mucus /LPF Urine Culture Indicated NO My Orders Orders - ANDRÉS MCDANIEL DO Ed Iv/Invasive Line Start (02/03/21 00:15) Cbc With Automated Diff (02/03/21 00:15) Magnesium (02/03/21 00:15) Chest 1 View, Ap/Pa Only (02/03/21 00:15) Ekg Tracing (02/03/21 00:15) Comprehensive Metabolic Panel (02/03/21 00:15) Myoglobin Serum (02/03/21 00:15) O2 (02/03/21 00:15) Monitor-Rhythm Ecg Trace Only (02/03/21 00:15) Ed Iv/Invasive Line Start (02/03/21 00:15) Creatine Kinase (02/03/21 00:15) Creatine Kinase Mb (02/03/21 00:15) Lipase (02/03/21 00:15) Amylase (02/03/21 00:15) BNP (02/03/21 00:15) Troponin I (02/03/21 00:15) Aspirin Chewable Tablet (Baby Aspirin Ch (02/03/21 00:15) Ua Culture If Indicated (02/03/21 00:27) Manual Differential (02/03/21 00:25) Ed Iv/Invasive Line Start (02/03/21 00:58) Ns Iv 1000 Ml (Sodium Chloride 0.9%) (02/03/21 01:00) Ct Chest/Abdomen/Pelvis W (02/03/21 00:58) Iohexol Injection (Omnipaque 350 Mg/Ml 1 (02/03/21 01:30) Ns (Ivpb) (Sodium Chloride 0.9% Ivpb Bag (02/03/21 01:30) Diphenhydramine Injection (Benadryl Inje (02/03/21 02:30) Famotidine Injection (Pepcid Injection) (02/03/21 02:30) Methylprednisolone Sod Succ (Solu-Medrol (02/03/21 02:30) Medications Given in ED Current Medications Medications Dose Ordered Sig/Dean Route Start Time Stop Time Status Last Admin Dose Admin Diphenhydramine HCl 50 mg ONCE ONCE IVP 02/03/21 02:30 02/03/21 02:31 DC 02/03/21 02:35 50 MG Famotidine 40 mg ONCE ONCE IVP 02/03/21 02:30 02/03/21 02:31 DC 02/03/21 02:35 40 MG Iohexol 100 ml ONCE ONCE IV 02/03/21 01:30 02/03/21 01:31 DC 02/03/21 01:34 100 ML Methylprednisolone Sodium Succinate 125 mg ONCE ONCE IVP 02/03/21 02:30 02/03/21 02:31 DC 02/03/21 02:35 125 MG Sodium Chloride 80 ml ONCE ONCE IV 02/03/21 01:30 02/03/21 01:31 DC 02/03/21 01:34 80 ML Vital Signs/I&O 02/03/21 02/03/21 00:15 03:27 Temp 36.7 36.7 Pulse 82 68 Resp 20 18 B/P (MAP) 117/95 (102) 116/79 (102) Pulse Ox 98 O2 Delivery Room Air Capillary Refill : Progress Note : Progress Note PT MOANING CONSTANTLY, BUT STATES SHE IS NOT HAVING PAIN OR NAUSEA AT THIS TIME OR ANY SPECIFIC SYMPTOMS GAVE IV FLUIDS 0225--PT C/O ITCHING ALL OVER--PT NOW HAS PATCHY MACULAR RASH OVER TRUNK, LEGS, ARMS. GAVE BENADRYL, PEPCID, SOLU-MEDROL WITH RESOLVING OF HIVES NO NAUSEA/VOMITING OR ANY STOOLS IN ER NO ABDOMINAL PAIN ECG Initial ECG Impression Date: Feb 03, 2021 Initial ECG Impression Time: 00:16 Initial ECG Rate: 76 Initial ECG Rhythm: Normal Sinus Initial ECG Impression: Nonspecific Changes Diagnostic Imaging Comments CT CHEST/ABDOMEN/PELVIS--FINDINGS SUGGESTIVE OF COLITIS, OTHERWISE NO ACUTE PROCESS--PER [facility] VIA FAX AT [id number] Reviewed: Reviewed by Me Departure Impression Primary Impression: Colitis Additional Impressions: Pancreatitis Hives Disposition: HOME, SELF-CARE Condition: Improved Departure-Patient Inst. Decision time for Depature: 02:50 Referrals: CHARLEY HILL RICHARD A DO (PCP/Family) Primary Care Physician Patient Instructions: Hives (DC), Colitis (DC), Pancreatitis Add. Discharge Instructions: CLEAR LIQUIDS--WATER, BROTH, JELLO, GATORADE, POPSICLES NO FOOD UNTIL YOU ARE RECHECKED AND CLEARED BY DR. FOLLOW UP WITH DR. HILL IN 1-2 DAYS--CALL THIS MORNING TO SCHEDULE APPOINTMENT RETURN TO ER IF SYMPTOMS WORSEN All discharge instructions reviewed with patient and/or family. Voiced understanding. Scripts Ondansetron (Ondansetron Odt) 8 Mg Tab.rapdis 8 MG PO Q6H, #10 TAB Prov: TRIXIE MCDANIELA K 02/03/21 Famotidine (Pepcid) 40 Mg Tablet 40 MG PO DAILY, #10 TAB Prov: JONASANDRÉS K 02/03/21 Prednisone (Prednisone) 20 Mg Tab 40 MG PO DAILY, #6 TAB 0 Refills Prov: TRIXIE MCDANIELA K 02/03/21 L. Acidophilus/Pectin, [place] (Acidophilus Capsule) 1 Each Capsule 2 EACH PO QID, #40 CAP Prov: JONASANDRÉS K 02/03/21 Metronidazole (Flagyl) 500 Mg Tablet 500 MG PO QID, #40 TAB Prov: JONAS,ANDRÉS K DO 02/03/21 Ciprofloxacin HCl (Ciprofloxacin HCl) 500 Mg Tablet 500 MG PO BID, #20 TAB Prov: TRIXIE MCDANIELA K 02/03/21 TRIXIE MCDANIELA K Feb 03, 2021 00:36
[2021-02-03 00:44] LABS: ALBUMIN 4.4 GM/DL (3.2-4.5); CHLORIDE 101 MMOL/L (98-107); POTASSIUM 3.7 MMOL/L (3.6-5.0); SODIUM 139 MMOL/L (135-145)
[2021-02-03 00:45] LABS: AMYLASE 227 U/L (25-125); CALCIUM 9.8 MG/DL (8.5-10.1)
[2021-02-03 00:47] LABS: GLUCOSE 145 MG/DL (70-105); TOTAL PROTEIN 7.3 GM/DL (6.4-8.2)
[2021-02-03 00:48] LABS: BILIRUBIN,TOTAL 0.4 MG/DL (0.1-1.0); CARBON DIOXIDE 22 MMOL/L (21-32)
[2021-02-03 00:50] LABS: ALKALINE PHOSPHATASE 49 U/L (40-136); CREATININE SERUM 0.86 MG/DL (0.60-1.30); GFR ESTIMATED > 60
[2021-02-03 00:51] LABS: BAND NEUTROPHILS 3 %; BUN/CREATININE RATIO 28; LYMPHOCYTES % (MANUAL) 21 %; MONOCYTES % (MANUAL) 2 %; NEUTROPHILS % (MANUAL) 74 %
[2021-02-03 00:53] LABS: ALANINE AMINOTRANSFERASE 19 U/L (0-55); MAGNESIUM 1.7 MG/DL (1.6-2.4)
[2021-02-03 00:53] LABS: BILIRUBIN,URINE NEGATIVE (NEGATIVE); CLARITY,URINE CLEAR; COLOR,URINE YELLOW; GLUCOSE, URINE (UA) NEGATIVE (NEGATIVE); KETONES,URINE TRACE (NEGATIVE); LEUKOCYTE ESTERASE ,URINE NEGATIVE (NEGATIVE); NITRITE,URINE NEGATIVE (NEGATIVE); PH,URINE 5.5 (5-9); PROTEIN,URINE NEGATIVE (NEGATIVE)
[2021-02-03 00:54] LABS: CREATINE KINASE 74 U/L (29-168); LIPASE 203 U/L (8-78)
[2021-02-03] MEDS ORDERED: NS IV 1000 ML 1,000 ML IV SCH (01:00)
[2021-02-03 01:01] LABS: CREATINE KINASE MB 1.4 NG/ML (<6.6)
[2021-02-03] MEDS ORDERED: NS 100 ML (IVPB) BAG IV ONE (01:30)
[2021-02-03] MEDS ORDERED: IOHEXOL 350 MG/ML 100 ML (OMNIPAQUE 350) VIAL IV ONE (01:30)
[2021-02-03] MEDS ORDERED: methylPREDNISolone 125 MG (Solu-MEDROL) VIAL IVP ONE (02:30)
[2021-02-03] MEDS ORDERED: diphenhydrAMINE 50 MG/ML INJ (BENADRYL) IVP ONE (02:30)
[2021-02-03] MEDS ORDERED: FAMOTIDINE 20MG/2ML IV (PEPCID) IVP ONE (02:30)
[2021-02-03] MEDS ORDERED: METR500T PO (02:50)
[2021-02-03] MEDS ORDERED: CIPR500T5 PO (02:50)
[2021-02-03] MEDS ORDERED: FAMO40TA72 PO (02:50)
[2021-02-03] MEDS ORDERED: L. A1CAP11 PO (02:50)
[2021-02-03] MEDS ORDERED: ONDA8TAB13 PO (02:50)
[2021-02-03] MEDS ORDERED: PRD20T PO (02:50)
[2021-02-03 03:27] VITALS: BP 116/79
--- NOTE | 2021-02-03 07:19 | Diagnostic Imaging Report ---
PROCEDURE: CT chest, abdomen, and pelvis with contrast. TECHNIQUE: Multiple contiguous axial images were obtained through the chest, abdomen, and pelvis after the administration of intravenous contrast. Auto Exposure Controls were utilized during the CT exam to meet ALARA standards for radiation dose reduction. Date: February 03, 2021. Indication: 65-year-old female, chest and abdominal pain. Elevated pancreatic enzymes. Comparison: Chest radiograph February 03, 2021. Findings: There is no lung mass. There is a 2 mm left lower lobe pulmonary nodule on axial image 39. There are mild upper lobe findings of emphysema. There is no pneumothorax. There is no pleural effusion. The central airways are patent. There is very minimal dependent atelectasis in the left lower lobe and adjacent to the spine in the right lower lobe. There is no additional focal airspace consolidation. There is no identified pulmonary embolus. The main pulmonary artery is normal in caliber. The heart is not enlarged. There is no pericardial effusion. There are atherosclerotic calcifications. There is no identified abnormally enlarged mediastinal, hilar, or axillary lymph node meeting CT size criteria for adenopathy. The liver is unremarkable in size and contour. There is no identified liver lesion. The gallbladder is unremarkable. There is no biliary ductal dilation. Unremarkable appearance of the pancreas. The spleen is normal in size. The adrenal glands are unremarkable. Unremarkable appearance of the renal parenchyma. The urinary collecting systems are not distended. There is no identified renal or ureteral stone. Urinary bladder is unremarkable. There is long segment abnormal wall thickening involving the length of the colon as well as long segment abnormal wall thickening of the ileum. There is no free intraperitoneal air. There is no drainable fluid collection. There is minimal free fluid in the pelvis. There is no identified abnormally enlarged lymph node in the abdomen or pelvis meeting CT size criteria for adenopathy. 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 There are multilevel degenerative changes of the spine. There is no identified acute bony abnormality. Impression: 1. Contiguous long segment abnormal wall thickening of the entire colon and long segment abnormal wall thickening of the ileum. This may relate to a nonspecific enteritis and colitis. Infectious and inflammatory etiologies would be in the differential diagnosis. 2. No identified acute abnormality at the level of the chest. Dictated by: Dictated on workstation # [id number]
--- NOTE | 2021-02-03 07:23 | Diagnostic Imaging Report ---
INDICATION: Chest pain. TECHNIQUE: Single view chest 12:41 AM. CORRELATION STUDY: 12/20/2016 FINDINGS: The heart size, mediastinal configuration and pulmonary vascularity are within normal limits. The lungs are clear with no consolidating infiltrate. There is no significant effusion or pneumothorax. IMPRESSION: 1. Negative appearing portable chest. Dictated by: Dictated on workstation # [id number]
== END 2021-02-03 03:27 | disposition home or self-care (01) ==
LOC: EDUNIT# 00:07 → ER 00:10
DX: K52.9 Noninfective gastroenteritis and colitis, unspecified (principal); K85.90 Acute pancreatitis without necrosis or infection, unspecified; L50.9 Urticaria, unspecified; F41.9 Anxiety disorder, unspecified; F17.210 Nicotine dependence, cigarettes, uncomplicated; Z88.5 Allergy status to narcotic agent; Z79.52 Long term (current) use of systemic steroids; Z79.899 Other long term (current) drug therapy
CPT/HCPCS: 36415; 71045; 71260; 74177; 80053; 81000; 82150; 82550; 82553; 83690; 83735; 83874; 83880; 84484; 85007; 85027; 93005; 93041

== ENCOUNTER → 2021-02-04 | Outpatient (CLI) | payer OTHER ==
[~2021-02-04] MED LIST changes: +CIPR500T5 PO; +FAMO40TA72 PO; +L. A1CAP11 PO; +METR500T PO; +ONDA8TAB13 PO
[2021-02-04 09:58] LABS: BASOPHILS % (AUTO) 0 % (0-10); EOSINOPHILS % (AUTO) 0 % (0-10); HEMATOCRIT 40 % (35-52); HEMOGLOBIN 13.2 g/dL (11.5-16.0); LYMPHOCYTES % (AUTO) 19 % (12-44); MEAN CORPUSCULAR HEMOGLOBIN 31 pg (25-34); MEAN CORPUSCULAR HGB CONC 33 g/dL (32-36); MEAN CORPUSCULAR VOLUME 92 fL (80-99); MONOCYTES # (AUTO) 0.7 10^3/uL (0.0-1.0); MONOCYTES % (AUTO) 5 % (0-12); NEUTROPHILS # (AUTO) 11.6 10^3/uL (1.8-7.8); NEUTROPHILS % (AUTO) 75 % (42-75); PLATELET COUNT 235 10^3/uL (130-400); WHITE BLOOD COUNT 15.4 10^3/uL (4.3-11.0)
[2021-02-04 10:23] LABS: AMYLASE 82 U/L (25-125); LIPASE 16 U/L (8-78)
[2021-02-04 10:54] LABS: LYMPHOCYTES % (MANUAL) 12 %; MONOCYTES % (MANUAL) 3 %; NEUTROPHILS % (MANUAL) 81 %; RBC MORPH NORMAL; REACTIVE LYMPHOCYTES 4 %
== END ==
LOC: LAB 09:34
PROVIDERS: ATTEND Family Medicine
DX: D72.829 Elevated white blood cell count, unspecified (principal); K85.90 Acute pancreatitis without necrosis or infection, unspecified
CPT/HCPCS: 36415; 82150; 83690; 85007; 85027